=== PATIENT | male | born 1985 | race American Indian/Alaskan Native ===

== ENCOUNTER 2023-09-03 15:22 | Emergency (ER) | payer OTHER ==
[2023-09-03] MEDS ORDERED: methylPREDNISolone Sodium Succinate 125 MG/2 ML SDV IM ONE (16:19)
[2023-09-03] MEDS ORDERED: Take Home: predniSONE 20 MG, 4 Tab Pack PO ONE (16:19)
== END 2023-09-03 16:47 | disposition home or self-care (01) ==
LOC: DL.ED 15:22
DX: G51.0 Bell's palsy (principal); F17.210 Nicotine dependence, cigarettes, uncomplicated; I10 Essential (primary) hypertension; E11.9 Type 2 diabetes mellitus without complications
CPT/HCPCS: 96372; 99283; A9270; J2930